=== PATIENT | female | born 1965 | race Caucasian/White ===

== ENCOUNTER 2017-12-22 06:13 | Inpatient (IN) ==
[~2017-12-22 06:13] MED LIST: Bacitracin 50,000 UNIT, Polymyxin B Sulfate 500,000 UNIT, Sodium Chloride IRRigation 1,... IR ONE
[2017-12-22] MEDS ORDERED: Albuterol 2.5 MG/3 ML NEBULIZER IH ONE (06:34)
[2017-12-22] MEDS ORDERED: CeFAZolin Syr 2,000MG/20 ML 2,000 MG/20 ML SYRINGE IVPB ONE (06:34)
[2017-12-22] MEDS ORDERED: Ringers Solution, Lactated 1,000 ML IVC SCH (06:45)
[2017-12-22] MEDS ORDERED: Lidocaine -MPF 4% 5 ML AMPUL ONE (07:17)
[2017-12-22] MEDS ORDERED: Ondansetron 4 MG/2 ML VIAL ONE (07:17)
[2017-12-22] MEDS ORDERED: *HR* Succinylcholine 200 MG/10 ML VIAL IVP ONE (07:17)
[2017-12-22] MEDS ORDERED: Dexamethasone 4 MG/ML VIAL ONE (07:17)
[2017-12-22] MEDS ORDERED: Lidocaine -MPF 2% 2 ML VIAL ONE (07:17)
--- NOTE | 2017-12-22 07:17 | Anesthesia Evaluation PreOp ---
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: Other (unsteady gait and uses walker, anxiety, depression, neuropathy bilateral hands and legs) Other Medical History: Renal (CKD stage 3), Diabetes Type II (insulin), Thyroid (hypo) Anesthesia History: No Prior Anesthetic Complications, Past Anesthesia (gastric bypass) : No Alcohol Use: none Drug use: none Medications and Allergies Allergy/AdvReac Type Severity Reaction Status Date / Time ketorolac [From Toradol] Allergy Hives Verified 01/07/17 18:23 ondansetron Allergy Hives Verified 01/07/17 18:23 [From Zofran (as hydrochloride)] - Meds/Allergy Pre-op Review Medications Reviewed: Yes Allergies Reviewed: Yes Beta Blockers on Current Med List: Yes (coreg ) If Beta Blockers taken, Date/Time (Last Dose taken): 03312/22/2017 Anesthesia Results - Labs Laboratory Tests 11/29/17 11/29/17 11/30/17 12:12 12:12 13:09 WBC 8.6 Hgb 12.5 Hct 39.9 Plt Count 227 PT 10.2 INR 0.9 Sodium 139 Potassium 4.0 Chloride 108 H Carbon Dioxide 24 BUN 25 H Creatinine 1.37 H Est GFR (Non-Af Amer) 40 L - Imaging EKG: report reviewed Additional studies: 03/29/2017 Impressions: LVEF 60-65%. Mild left ventricular diastolic dysfunction. Normal right ventricular structure and function. No significant valvular dysfunction. No pulmonary hypertension. 12/14/2017 Pharmacologic stress ECG is negative for ischemia at level of heart rate achieved. Gated EF = 69%. Small sized, moderate intensity, fixed inferolateral perfusion defect with normal wall motion. These findings are most consistent with artifact. Perfusion imaging was negative for ischemia or infarct. 10/27/2017 cervical xray IMPRESSION: 1. Sequelae of anterior cervical discectomy and fusion at C5-6 without adverse features evident. 2. 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 Anesthesia Exam Vital Signs/O2 Sat/Glucose, Most Recent Temp Pulse Resp BP Pulse Ox 97.9 F 76 18 150/76 100 12/22/17 06:48 12/22/17 06:48 12/22/17 06:48 12/22/17 06:48 12/22/17 06:48 Blood Glucose* 76 - HEENT Pupil (Motor): Pupils equal Mallampati: II Denture Type: Upper: Complete, Lower: Partial Oral Opening: Greater than 3 - MANIFOLD OPERATOR LOC: Oriented MANIFOLD OPERATOR Motor: Normal RUE, Normal LUE, Normal RLE, Normal LLE, Normal Face MANIFOLD OPERATOR Sensory: Normal: RUE, LUE, RLE, LLE, Face - Cardiac Rhythm: Regular Murmur: None - Pulmonary Breath Sounds: bilateral Clear Respiratory Effort: Symmetrical Anesthesia Assess/Plan ASA Score: 3 Modified Hatfield Scale for Level of Consciousness: Cooperative, oriented, and tranquil Anesthetic Plan: General Monitoring Plan: Standard Monitors, A-Line Recovery Plan: PACU
[2017-12-22] MEDS ORDERED: *HR* Midazolam HCl 2 MG/2 ML VIAL ONE (07:18)
[2017-12-22] MEDS ORDERED: *HR* Remifentanil 1 MG VIAL IVP ONE ×2 (07:18→10:31)
[2017-12-22] MEDS ORDERED: *HR* Propofol 200 MG/20 ML VIAL IVP ONE (07:18)
[2017-12-22] MEDS ORDERED: Acetaminophen IV 1,000 MG/100 ML INFUS..BTL IVPB ONE (07:35)
[2017-12-22] MEDS ORDERED: Famotidine 20 MG/2 ML VIAL IVP ONE (07:35)
[2017-12-22] MEDS ORDERED: Gabapentin 300 MG CAPSULE PO ONE (07:35)
[2017-12-22] MEDS ORDERED: Heparin 1,000 UNITS/500 mL 500 ML ONE (07:43)
[2017-12-22] MEDS ORDERED: Acetaminophen IV 1,000 MG/100 ML INFUS..BTL ONE (07:45)
[2017-12-22] MEDS ORDERED: Famotidine 20 MG/2 ML VIAL ONE (07:46)
[2017-12-22] MEDS ORDERED: Gabapentin 300 MG CAPSULE ONE (07:48)
--- NOTE | 2017-12-22 07:48 | History & Physical Report ---
Date of Encounter: 12/22/17 Time of Encounter: 07:47 24 Hour HP Update - Instructions Instructions: If the History and Physical is less than 30 days old and was completed prior to A.M. admission and or procedure and has NOT been updated on calendar day of procedure please complete this update prior to performing procedure. - Update Patient reports changes in Medical Condition: No Changes in examination, assessment, or condition: No Changes in Medication: No Preop tests/diagnostics Reviewed: Yes Pre-Op MRSA Screen: Negative Surgery Remains Indicated: Yes Consent for Planned Operative Procedure(s) Verified: Yes - Pre-Operative Checklist Preoperative Checklist Indicated: No Prophylactic Antibiotic Ordered: Yes Home Medications Include Beta Kanu: No Beta Kanu Taken Today (Day of Surgery): No Beta Kanu Taken Yesterday (Day Prior to Surgery): No Is VTE Prophylaxis Indicated?: Yes
[2017-12-22] MEDS ORDERED: *HR* FentaNYL (PF) 100 MCG/2 ML VIAL ONE (08:28)
[2017-12-22] MEDS ORDERED: KETAMINE HCL 50 MG/ML SYRINGE IV ONE (08:41)
[2017-12-22] MEDS ORDERED: EPHEDrine 50 MG/ML VIAL ONE (08:46)
[2017-12-22] MEDS ORDERED: ceFAZolin 1,000 MG in Water for inj. (sterile) 20 ML 10 ML IVP ONE (09:54)
[2017-12-22] MEDS ORDERED: *HR* Meperidine 25 MG/ML SYRINGE IVP PRN (11:12)
[2017-12-22] MEDS ORDERED: *HR* OxyCODONE Immed Rel 5 MG TABLET PO PRN (11:12)
[2017-12-22] MEDS: *HR* Promethazine 25 MG/ML VIAL IVP PRN ×2 (12:56→13:01)
[2017-12-22] MEDS: *HR* HYDROmorphone (PF) 1 MG/ML SYRINGE IVP PRN ×5 (12:57→13:17)
--- NOTE | 2017-12-22 13:08 | Orthopedic Operative Note ---
Date of procedure: 12/22/17 Pre-op diagnosis: Spondylolisthesis, lumbar stenosis, lumbar radiculopathy Post-op diagnosis: same Operation/Findings: Posterior cervical fusion C3-C6: Patient was brought to the operative theater where he successfully underwent general endotracheal intubation. She was given antibiotics prior to the start of the procedure. Compression boots and stockings were used for deep vein thrombosis prophylaxis. A Henry catheter was placed. Leads were placed on the upper extremities and lower extremities as well as the cranium. The neurologic monitoring personnel confirmed satisfactory readings prior to the start of the procedure. Ford tongs were placed and the patient was turned prone on the operative table. The area from the mid occipital to the mid thoracic spine was prepped and draped in the usual sterile fashion posteriorly. An incision was made and centered over the C3-C6 cervical spinous processes in the midline. The scoring incision was deepened through the cervical fascia. We used Bovie cautery and Billy elevators to carefully dissect the lateral masses and expose them from C3-C6. Radiographic confirmation was confirmed by the radiologist via a discussion. We then placed lateral mass screws at C3, C4, C5 and C6 bilaterally using standard techniques. 8 separate 3.5 x 12 mm lateral mass screws were placed uneventfully and confirmed via fluorographic views as having satisfactory placement. After placement of the lateral mass screws, we turned our attention to the decompression. We removed the ligamentum flavum and interspinous and supraspinous ligaments at the C5-6. We proceeded proximally with the decompression. This includes a laminectomy of C6, C5, C4, and C3. All intervening ligamentum flavum and ligamentous material was removed. Bone obtained from the laminectomies was saved in a separate sterile container for later use. After the decompression, the spinal cord could be clearly visualized from C3-C6 and was fully decompressed. It was seen to expand nicely. We copiously irrigated the wound. We then decorticated the facet joints and lateral masses from C3-4, C4-5, and C5-6 bilaterally until bleeding bone was obtained. We then used the autograft bone obtained from the laminectomy/decompression from C3-C6 and placed it over the lateral masses and facet joints in these regions. We then placed rods within the screw heads from C3-C6 bilaterally. We subsequently placed screw caps over the Rods and locked and finally tightened the construct in standard fashion. We then closed the wound in layers with 1 Vicryl for the Fascia, 2-0 Vicryl for the more superficial fascia and 2-0 Vicryl was used for skin closure. Dermabond was paced over the wound. Sterile dressing was placed over the wound as well. Cervical collar was placed. Patient was turned supine and extubated on the Hospital Bed. The patient was in good condition at the end of the procedure. All sponge counts, needle counts, and Instruments were correct at the end of the procedure. Anesthesia: GETA Surgeon: Lamonte Landaverde Jr Was there an dental assistant present: No Estimated blood loss (cc): 100 Specimen: None Condition: stable Disposition: PACU
[2017-12-22] MEDS: *HR* Labetalol 20 MG/4 ML SYRINGE IVP PRN ×4 (13:12→13:27)
[2017-12-22] MEDS ORDERED: Acetaminophen 325 MG TABLET PO PRN (14:26)
[2017-12-22] MEDS ORDERED: Albuterol 2.5 MG/3 ML NEBULIZER IH PRN (14:26)
[2017-12-22] MEDS ORDERED: tiZANidine 4 MG TABLET PO PRN (14:26)
[2017-12-22] MEDS ORDERED: Naloxone 0.4 MG/ML INJ IVP PRN (14:26)
[2017-12-22] MEDS ORDERED: clonazePAM 1 MG TABLET PO PRN (14:26)
[2017-12-22] MEDS ORDERED: Ondansetron 4 MG/2 ML VIAL IVP PRN (14:26)
[2017-12-22] MEDS: Ringers Solution, Lactated 1,000 ML IVC SCH (17:12)
[2017-12-22] MEDS ORDERED: *HR* Promethazine 25 MG/ML VIAL IVP PRN (18:21)
[2017-12-22] MEDS: *HR* OxyCODONE Immed Rel 5 MG TABLET PO PRN ×2 (18:38→22:59)
[2017-12-22] MEDS: Insulin DETEMIR 100 UNIT/ML X5UNITS SQ SCH (18:41)
[2017-12-22] MEDS: Budesonide/Formoterol 160/4.5 1 PUFF INH IH SCH (20:27)
[2017-12-23] MEDS: *HR* OxyCODONE Immed Rel 5 MG TABLET PO PRN ×2 (06:23→13:29)
[2017-12-23] MEDS: Budesonide/Formoterol 160/4.5 1 PUFF INH IH SCH ×2 (08:07→20:34)
[2017-12-23] MEDS: *HR* HYDROcodone/Acet 5/325 mg TABLET PO PRN ×2 (09:16→23:08)
[2017-12-23] MEDS: Lisinopril-HCTZ 20-12.5mg TABLET PO SCH (09:18)
[2017-12-23] MEDS: LIRAGLUTIDE SQ SCH (09:18)
[2017-12-23] MEDS ORDERED: Dextrose Gel 15 GM/37.5 ML TUBE PO PRN ×2 (12:21)
[2017-12-23] MEDS ORDERED: *HR* Dextrose 50 % in Water (Syg) 50 ML SYRINGE IVP PRN (12:21)
[2017-12-23] MEDS ORDERED: D5% in Water 1,000 ML IVC PRN (12:21)
[2017-12-23] MEDS: Insulin LISPRO 300 UNITS/3 ML VIAL SQ SCH ×2 (13:30→16:02)
[2017-12-23] MEDS ORDERED: diazePAM 5 MG TABLET PO PRN (16:42)
[2017-12-23] MEDS: Insulin DETEMIR 100 UNIT/ML X5UNITS SQ SCH (18:38)
[2017-12-23] MEDS ORDERED: Temazepam 15 MG CAPSULE PO PRN (20:06)
[2017-12-23] MEDS: Ringers Solution, Lactated 1,000 ML IVC SCH ×3 (20:09→23:03)
--- NOTE | 2017-12-23 20:12 | Spine Progress Note ---
Date of Encounter: 12/23/17 Time of Encounter: 20:10 Subjective Principal diagnosis: Cervical stenosis, cervical myelopathy Interval history: The patient is complains of severe neck pain and spasms. Pain is in the neck and upper trapezial region. She denies radicular symptoms. Afebrile vital signs are stable. Dressing is clean dry and intact. Neurovascularly intact with regard to bilateral upper extremities. Fires all upper and lower extremity motor groups. Assessment :stable. Plan will add muscle relaxants. Mobilize as tolerated. Restoril daily at bedtime when necessary. Objective Vital signs: Vital Signs Temp Pulse Resp BP Pulse Ox 12/23/17 19:28 98.6 F 76 18 176/94 95 12/23/17 15:09 98.7 F 69 18 127/84 12/23/17 10:49 98.7 F 93 18 151/82 91 12/23/17 08:07 16 94 12/23/17 06:21 98.9 F 77 18 176/81 100 12/23/17 03:42 98.3 F 79 16 186/82 100 12/22/17 23:34 98.4 F 82 17 153/71 99 12/22/17 20:27 16 100 Intake and Output 12/23/17 12/23/17 12/23/17 07:59 15:59 23:59 Intake Total 240 / 240 Output Total 1450 / 1450 75 / 75 500 / 500 Balance -1450 / -1450 -75 / -75 -260 / -260 Intake: Oral 240 / 240 Output: Urine 1000 / 1000 75 / 75 500 / 500 Catheter 450 / 450 Other: Meal Dinner Percent of Meal Consumed 0% Weight 98.881 kg Blood Glucose* 149 302 91 Patient Weight 12/23/17 23:59 Weight 98.881 kg - Labs Labs: Abnormal lab results POC Glucose 302 mg/dL (70-99) H 12/23/17 15:51 Consult Discharge Plan - Plan Referrals: Agustín Kirkpatrick MD [Primary Care Provider] -
[2017-12-23] MEDS ORDERED: Insulin LISPRO 300 UNITS/3 ML VIAL SQ SCH (21:00)
[2017-12-24] MEDS: *HR* OxyCODONE Immed Rel 5 MG TABLET PO PRN ×4 (02:17→19:31)
--- NOTE | 2017-12-24 05:14 | Spine Progress Note ---
Date of Encounter: 12/24/17 Time of Encounter: 05:13 Subjective Principal diagnosis: Cervical stenosis, cervical myelopathy Interval history: The patient is complains neck pain and spasms. Pain is in the neck and upper trapezial region. She denies radicular symptoms. Improved from yesterday with Valium and muscle relaxers. She is able to get some sleep. Afebrile vital signs are stable. Dressing is clean dry and intact. Neurovascularly intact with regard to bilateral upper extremities. Fires all upper and lower extremity motor groups. Assessment :stable. Mobilize. Discharge planning. X-ray satisfactory. Objective Vital signs: Vital Signs Temp Pulse Resp BP Pulse Ox 12/24/17 04:36 97.7 F 78 16 150/104 93 12/23/17 23:53 98.2 F 89 18 156/102 95 12/23/17 21:29 16 98 12/23/17 19:28 98.6 F 76 18 176/94 95 12/23/17 15:09 98.7 F 69 18 127/84 12/23/17 10:49 98.7 F 93 18 151/82 91 12/23/17 08:07 16 94 12/23/17 06:21 98.9 F 77 18 176/81 100 Intake and Output 12/23/17 12/23/17 12/24/17 15:59 23:59 07:59 Intake Total 1240 / 1240 100 / 100 Output Total 75 / 75 500 / 500 Balance -75 / -75 740 / 740 100 / 100 Intake: IV Fluids 1000 / 1000 100 / 100 Lactated Ringers 1,000 ML @ 100 1000 / 1000 mls/hr IVC .Q10H SHAJI Rx#: [id number] Oral 240 / 240 Output: Urine 75 / 75 500 / 500 Other: Meal Dinner Percent of Meal Consumed 0% Stool Size Copious Large Stool Consistency formed loose Stool Color Brown Brown Yellow # Urine Diapers 1 1 # Bowel Movements 1 Blood Glucose* 302 91 - Labs Labs: Abnormal lab results POC Glucose 302 mg/dL (70-99) H 12/23/17 15:51 Consult Discharge Plan - Plan Referrals: Agustín Kirkpatrick MD [Primary Care Provider] -
[2017-12-24] MEDS: *HR* HYDROcodone/Acet 5/325 mg TABLET PO PRN ×2 (05:16→12:09)
--- NOTE | 2017-12-24 05:16 | Discharge Summary ---
- NOTES TO OUTPATIENT PROVIDER Notes to Outpatient Provider: Follow-up in [facility] Center in 2 weeks Date of Encounter: 12/24/17 Time of Encounter: 05:14 - Discharge Diagnosis (1) Cervical stenosis of spinal canal Priority: Primary Status: Chronic (2) Cervical myelopathy Priority: Secondary Status: Chronic - Hospital Course Hospital course: Ms. Solano is a 52 year old female The patient had an uneventful postoperative course. Progressed from intravenous analgesic needs to oral an algesic needs only. Remained neurovascularly intact and mobilized satisfactorily. All intraoperative and/or postoperative radiographic studies were satisfactory. Patient is discharged with plan for rehabilitation and follow-up in 2 weeks post discharge on analgesic medication and patient's home medications. - Time Spent with Patient Total time spent providing and/or coordinating discharge services: - Discharge Medications Prescriptions: OxyCODONE Immed Rel [Roxicodone 5 MG] 5 mg PO Q4HR PRN 7 Days #30 tablet PRN Reason: Severe Pain Home Medications: Albuterol Neb [Proventil Neb] 2.5 mg IH Q6HR PRN 12/22/17 [History] Albuterol Sulfate [Ventolin Hfa] 2 puff IH Q4H PRN 12/22/17 [History] Atorvastatin [Lipitor] 40 mg PO HS 12/22/17 [History] Budesonide/Formoterol 160/4.5 [Symbicort 160/4.5] 2 puff IH BIDR 12/22/17 [History] Calcitriol 0.5 mg PO DAILY 12/22/17 [History] Carvedilol [Coreg] 6.25 mg PO BID 12/22/17 [History] Clopidogrel [Plavix] 75 mg PO DAILY 12/22/17 [History] Escitalopram [Lexapro] 20 mg PO DAILY 12/22/17 [History] Gabapentin [Neurontin] 600 mg PO BID 12/22/17 [History] Insulin Glargine,Hum.rec.anlog [Basaglar Kwikpen U-100] 10 unit SQ QPM 12/22/17 [History] Levothyroxine Sodium [Levo-T] 100 mcg PO DAILY 12/22/17 [History] Liraglutide [Victoza 3-Tom] 0.3 ml SQ DAILY 12/22/17 [History] Lisinopril-HCTZ 20-12.5 [Prinzide 20-12.5] 1 tab PO DAILY 12/22/17 [History] Tizanidine HCl [Zanaflex] 4 mg PO BID PRN 12/22/17 [History] clonazePAM [Clonazepam] 1 mg PO BID PRN 12/22/17 [History] OxyCODONE Immed Rel [Roxicodone 5 MG] 5 mg PO Q4HR PRN 7 Days #30 tablet 12/24/17 [Rx] Allergies/Adverse Reactions: Allergy/AdvReac Type Severity Reaction Status Date / Time ketorolac [From Toradol] Allergy Hives Verified 12/22/17 07:50 ondansetron Allergy Hives Verified 12/22/17 07:50 [From Zofran (as hydrochloride)] Date of admission: 12/22/17 14:27 Primary care physician: Agustín Kirkpatrick MD Consults: 12/22/17 14:26 Consult to Occupational Therapy [CONS] Routine Comment: Evaluate, develop and implement POC Reason for Consult: Postoperative rehabilitation Does patient have active BEDREST order?: No Is patient medically & hemodynamically stable?: Yes Patient assessed for mobility or mobilized this visit?: No Consult to Physical Therapy [CONS] Routine Comment: Evaluate, develop and implement POC Reason for Consult: Postoperative rehabilitation Does patient have active BEDREST order?: No Is patient medically & hemodynamically stable?: Yes Patient assessed for mobility or mobilized this visit?: No Consult to Spine Navigator [CONS] [CONS] Routine Labs on day of discharge: Labs from last 24 hours 12/23/17 12/23/17 12/23/17 15:51 11:11 06:56 POC Glucose 302 H 269 H 149 H 12/22/17 17:25 POC Glucose 205 H - Impressions ITS Impressions Cervical Spine X-Ray 12/22/17 00:00 IMPRESSION: Fluoroscopic guidance intraoperatively for the guidance of fusion posteriorly of C3 through C6. Orthopedic hardware projects in expected position. D/ / 12/22/2017 12:54:27 Franklyn Boykin MD / mikaela Interpreting Provider: Franklyn Boykin MD Fluoroscopy 12/22/17 00:00 IMPRESSION: Fluoroscopic guidance intraoperatively for the guidance of fusion posteriorly of C3 through C6. Orthopedic hardware projects in expected position. D/ / 12/22/2017 12:54:27 Franklyn Boykin MD / mikaela Interpreting Provider: Franklyn Boykin MD Cervical Spine X-Ray 12/23/17 08:30 IMPRESSION: Status post posterior fusion with screw and rods from C3 through C6. Previous anterior fusion at C4-5. No unexpected finding. D/ / 12/23/2017 09:23:33 Yamila Holloway MD / Dominique Dougherty Interpreting Provider: Yamila Holloway MD - Patient Status Disposition: Home Health Service Condition: Good Functional capacity at discharge: uses cane/walker Overall status at discharge: patient is progressing back to baseline - Discharge Instructions Follow Up With: Agustín Kirkpatrick MD [Primary Care Provider] - - Diet and Activity Activity: as per physical therapy Diet: advance to your usual diet
[2017-12-24] MEDS: Ringers Solution, Lactated 1,000 ML IVC SCH (06:58)
[2017-12-24] MEDS: Insulin LISPRO 300 UNITS/3 ML VIAL SQ SCH ×3 (07:45→16:43)
[2017-12-24] MEDS: Budesonide/Formoterol 160/4.5 1 PUFF INH IH SCH (07:46)
[2017-12-24] MEDS: Lisinopril-HCTZ 20-12.5mg TABLET PO SCH (08:56)
[2017-12-24] MEDS: LIRAGLUTIDE SQ SCH (08:56)
[2017-12-24 15:17] VITALS: BP 161/83
[2017-12-24] MEDS: Insulin DETEMIR 100 UNIT/ML X5UNITS SQ SCH (17:35)
== END 2017-12-24 19:34 | disposition home health service (06) | DRG 472 ==
LOC: SAMDAY 06:13 → 3NENU 14:27
PROVIDERS: ADMIT Orthopaedic Surgery Orthopaedic Surgery of the Spine; ATTEND Orthopaedic Surgery Orthopaedic Surgery of the Spine